=== PATIENT | male | born 1965 | race Caucasian/White ===

== ENCOUNTER 2019-10-30 19:40 | Emergency (ER) | payer OTHER ==
[~2019-10-30] VITALS: Ht 172.7 cm; Wt 75.3 kg
[~2019-10-30 19:40] MED LIST: NO REPORTABLE MEDS
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
[2019-10-30 20:11] LABS: BASOPHILS # (AUTO) 0.1 /CMM (0.0-0.2); BASOPHILS % (AUTO) 0.9 % (0.0-2.0); EOSINOPHILS % (AUTO) 2.9 % (0.0-6.0); HEMATOCRIT 43 % (39-51); HEMOGLOBIN 14.4 g/dL (13.5-17.5); LYMPHOCYTES # (AUTO) 1.7 /CMM (0.8-4.8); LYMPHOCYTES % (AUTO) 27.3 % (20.0-44.0); MEAN CORPUSCULAR HGB CONC 34 g/dl (31.0-36.0); MEAN CORPUSCULAR VOLUME 81 fL (80-96); MONOCYTES # (AUTO) 0.5 /CMM (0.1-1.30); MONOCYTES % (AUTO) 8.4 % (2.0-12.0); NEUTROPHILS # (AUTO) 3.7 /CMM (1.8-8.9); NEUTROPHILS % (AUTO) 60.5 % (43.0-81.0); PLATELET COUNT (AUTO) 224 /CMM (150-450); RED BLOOD CELL COUNT(AUTO) 5.26 MIL/uL (4.5-6.0); WHITE BLOOD COUNT (AUTO) 6.2 K/uL (4.3-11.0)
[2019-10-30 20:26] LABS: CALCIUM, SERUM 9.4 mg/dL (8.5-10.1); CARBON DIOXIDE 29 mmol/L (21-32); CHLORIDE 104 mmol/L (98-107); CREATININE 1.2 mg/dL (0.6-1.3); GLUCOSE 107 mg/dL (74-106); POTASSIUM 3.7 mmol/L (3.5-5.1); SODIUM SERUM 142 mmol/L (136-145); UREA NITROGEN, BLOOD 18 mg/dL (7-18)
--- NOTE | 2019-10-30 21:02 | NUR ---
Patient discharged to home in stable condition. Written and verbal after care instructions given. Patient verbalizes understanding of instruction and RX. IV removed. Catheter intact and site benign. Pressure and 4x4 applied to site. No bleeding noted. Pt ambulated with steady gait.
[2019-10-30 21:10] VITALS: BP 134/74
== END 2019-10-30 21:11 | disposition home or self-care (01) ==
LOC: ER 19:41
DX: R07.89 Other chest pain (principal); I10 Essential (primary) hypertension; E78.5 Hyperlipidemia, unspecified; F17.210 Nicotine dependence, cigarettes, uncomplicated
CPT/HCPCS: 36415; 71045-TC; 80048-TC; 84484-TC; 85025-TC

== ENCOUNTER 2022-11-07 06:29 | Emergency (ER) | payer OTHER ==
[~2022-11-07] VITALS: Ht 172.7 cm; Wt 77.1 kg
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
[2022-11-07] MEDS ORDERED: HYDROCODONE/APAP 5/325MG TABLET ONE (08:12)
--- NOTE | 2022-11-07 08:17 | NUR ---
NORCO PO GIVEN INDICATED, EDMAR WELL. WARM BLANKET PROVIDED TO PT. PT'S SIGNIFICANT OTHER AT BEDSIDE.
[2022-11-07] MEDS ORDERED: HYDROCODONE/APAP 5/325MG TABLET PO ONE (08:30)
--- NOTE | 2022-11-07 08:41 | NUR ---
FOLLOWED UP RESULT OF CT SCAN W/ RADIOLOGY
[2022-11-07] MEDS ORDERED: HYDR-4275 PO (08:54)
--- NOTE | 2022-11-07 09:00 | NUR ---
TECH AT BEDSIDE FOR WOUND CARE.
--- NOTE | 2022-11-07 09:13 | NUR ---
Patient discharged to home in stable condition. Written and verbal after care instructions given. Patient verbalizes understanding of instruction.
[2022-11-07 09:14] VITALS: BP 142/90
== END 2022-11-07 09:14 | disposition home or self-care (01) ==
LOC: ER 06:32
DX: S43.402A Unspecified sprain of left shoulder joint, initial encounter (principal); S20.219A Contusion of unspecified front wall of thorax, initial encounter; S30.1XXA Contusion of abdominal wall, initial encounter; R51.9 Headache, unspecified; I10 Essential (primary) hypertension; E78.5 Hyperlipidemia, unspecified; F17.200 Nicotine dependence, unspecified, uncomplicated; Z79.899 Other long term (current) drug therapy; V29.608A Unspecified rider of other motorcycle injured in collision with unspecified motor vehicles in traffic accident, initial encounter; Y93.89 Activity, other specified; Y92.413 State road as the place of occurrence of the external cause; Y99.8 Other external cause status
CPT/HCPCS: 70450-TC; 71250-TC

== ENCOUNTER 2023-02-21 01:51 | Emergency (ER) | payer OTHER ==
[~2023-02-21] VITALS: Ht 172.7 cm; Wt 77.1 kg
[~2023-02-21 01:51] MED LIST changes: +HYDR-4275 PO
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
[2023-02-21] MEDS ORDERED: IBUPROFEN 400 MG TABLET PO ONE (03:30)
[2023-02-21] MEDS ORDERED: IBUPROFEN 400 MG TABLET ONE (03:41)
[2023-02-21] MEDS ORDERED: IBUP-1955 PO (05:19)
[2023-02-21] MEDS ORDERED: ATOR20TA PO (05:19)
[2023-02-21] MEDS ORDERED: AMLO-212 PO (05:19)
[2023-02-21] MEDS ORDERED: COMP-12 MC (05:19)
[2023-02-21 05:26] VITALS: BP 131/60
== END 2023-02-21 05:27 | disposition home or self-care (01) ==
LOC: ER 01:54
DX: M25.571 Pain in right ankle and joints of right foot (principal); I89.0 Lymphedema, not elsewhere classified; I10 Essential (primary) hypertension; E78.5 Hyperlipidemia, unspecified; F17.200 Nicotine dependence, unspecified, uncomplicated; Z79.899 Other long term (current) drug therapy
CPT/HCPCS: 73610-TC